=== PATIENT | male | born 1990 | race Two or more races ===

== ENCOUNTER 2019-02-23 19:51 | Emergency (ER) | payer OTHER ==
[~2019-02-23] VITALS: Ht 188 cm; Wt 104.3 kg
[2019-02-23 20:22] VITALS: BP 128/71
[2019-02-23] MEDS ORDERED: HYDROcodone-ACET 10/325MG TAB PO ONE (22:15)
[2019-02-23] MEDS ORDERED: TETANUS-DIPTH-ACEL PERTUSSIS 0.5ML SYRG IM ONE (22:15)
[2019-02-23] MEDS ORDERED: cefTRIAXone SOD 1,000 MG VL IM ONE (22:15)
== END 2019-02-23 23:37 | disposition home or self-care (01) ==
LOC: ER 19:51 → EEVIPCON 19:51 → ER 23:37
DX: S01.112A Laceration without foreign body of left eyelid and periocular area, initial encounter (principal); Y04.8XXA Assault by other bodily force, initial encounter; Y93.89 Activity, other specified; Y92.89 Other specified places as the place of occurrence of the external cause; Y99.8 Other external cause status
CPT/HCPCS: 12011; 70450; 90471; 90715; 96372; 99284; J0696

== ENCOUNTER 2019-10-06 20:29 | Emergency (ER) | payer OTHER ==
[~2019-10-06] VITALS: Ht 188 cm; Wt 97.5 kg
[2019-10-06 21:34] VITALS: BP 114/62
[2019-10-06] MEDS ORDERED: PROPOFOL 10 MG/ML 20 ML IV ONE (21:45)
[2019-10-06] MEDS ORDERED: SODIUM CHLORIDE 0.9% 1,000 ML IV ONE (21:45)
== END 2019-10-06 22:43 ==
LOC: ER 20:29
DX: S43.402A Unspecified sprain of left shoulder joint, initial encounter (principal); M24.812 Other specific joint derangements of left shoulder, not elsewhere classified; W20.8XXA Other cause of strike by thrown, projected or falling object, initial encounter; Y93.89 Activity, other specified; Y92.89 Other specified places as the place of occurrence of the external cause; Y99.8 Other external cause status
CPT/HCPCS: 73030; J2704